=== PATIENT | female | born 1950 | race Caucasian/White ===

== ENCOUNTER 2017-12-15 20:31 | Inpatient (IN) | payer OTHER, MEDICAID ==
[~2017-12-15] VITALS: Ht 160 cm; Wt 85.3 kg
[2017-12-15 20:32] VITALS: BP 119/53
[2017-12-15] MEDS ORDERED: AMLODIPINE BESY10 MG PO (20:43)
[2017-12-15] MEDS ORDERED: CYMBALTA60 MG PO (20:43)
[2017-12-15] MEDS ORDERED: HUMALOG100 UNIT/1 SUBQ (20:43)
[2017-12-15] MEDS ORDERED: GLUCOTROL5 MG PO (20:44)
[2017-12-15] MEDS ORDERED: LEVEMIR SUBQ (20:44)
[2017-12-15] MEDS ORDERED: FLOMAX0.4 MG PO (20:45)
[2017-12-15] MEDS ORDERED: PRINIVIL20 MG PO (20:45)
[2017-12-15] MEDS ORDERED: METFORMIN HCL500 MG PO (20:45)
[2017-12-15] MEDS ORDERED: DUONEB 2.5-0.5 M3 ML INH (20:45)
[2017-12-15] MEDS ORDERED: NARCAN 1MG/ML1 MG/M1 (20:46)
[2017-12-15] MEDS ORDERED: PERCOCET PO (20:47)
[2017-12-15 20:56] LABS: ABSOLUTE EOSINOPHILS 0.1 thou/uL (0.0-0.7); ABSOLUTE LYMPHOCYTES 1.5 thou/uL (0.8-5.3); ABSOLUTE MONOCYTES 0.8 thou/uL (0.0-1.2); ABSOLUTE NEUTROPHILS 9.1 thou/uL (1.6-8.1); BASOPHILS 0.3 %; EOSINOPHILS 0.8 %; HEMATOCRIT 33.5 % (37.0-47.0); HEMOGLOBIN 10.4 gm/dL (12.0-15.0); LYMPHOCYTES 12.6 %; MCH 25.3 pg (26.0-34.0); MCHC 31.1 g/dL (28.0-37.0); MCV 81.3 fL (80.0-100.0); MONOCYTES 7.1 %; MPV 7.9 fl. (7.2-11.1); NUCLEATED RBCS 0 /100WBC; PLATELET COUNT* 235 thou/uL (150-400); POLYS 79.2 %; RBC 4.12 mil/uL (4.20-5.00); RDW-CV 22.5 % (10.5-14.5); WBC 11.5 thou/uL (4.0-11.0)
[2017-12-15 20:59] LABS: URINE BILIRUBIN NEGATIVE (Negative); URINE BLOOD NEGATIVE (Negative); URINE CLARITY CLEAR; URINE COLOR YELLOW; URINE GLUCOSE-RANDOM NEGATIVE (Negative); URINE KETONES NEGATIVE (Negative); URINE LEUKOCYTES-REFLEX NEGATIVE (Negative); URINE PROTEIN NEGATIVE (Negative); URINE SPECIFIC GRAVITY >= 1.030 (1.005-1.030); URINE UROBILINOGEN 0.2 E.U./dl (0.2-1.0)
[2017-12-15 21:00] LABS: ANION GAP 7 mmol/L (7-16); BUN 35 mg/dL (7-18); CALCIUM 9.3 mg/dL (8.5-10.1); CHLORIDE 102 mmol/L (98-107); CO2 31 mmol/L (21-32); CREATININE 0.9 mg/dL (0.6-1.3); GLUCOSE 112 mg/dL (70-99); POTASSIUM 4.1 mmol/L (3.5-5.1); SODIUM 140 mmol/L (136-145)
[2017-12-15 21:01] LABS: URINE NITRITE-REFLEX POSITIVE (Negative)
[2017-12-15 21:07] LABS: ALBUMIN 3.2 g/dL (3.4-5.0); ALKALINE PHOSPHATASE 43 U/L (46-116); SGOT 47 U/L (15-37); SGPT 55 U/L (30-65); TOTAL BILIRUBIN 0.4 mg/dL (<0.1-1.0); TOTAL PROTEIN 7.5 g/dL (6.4-8.2); TROPONIN-I LEVEL <0.06 ng/mL (<0.06)
[2017-12-15 21:10] LABS: HYALINE CASTS 4-10 Moderate /LPF (None Seen)
[2017-12-15 21:11] LABS: AMORPHOUS URATES Few /LPF (None Seen); BACTERIA-REFLEX >30 Many /HPF (None Seen); MUCUS 0-3 Light strn/LPF (None Seen); SQUAMOUS 4-10 Moderate /LPF (0-3)
[2017-12-15 21:12] LABS: URINE RBC None Seen /HPF (0-2); URINE WBC-REFLEX 6-15 Few /HPF (0-5)
[2017-12-15 21:35] LABS: PLATELET ESTIMATE ADEQUATE
[2017-12-15 21:35] LABS: BE 2.4 mmol/L (-2 to +3); HCO3 29.4 mmol/L (22.0-26.0); PO2 108.2 mmHg (75.0-100.0); pH 7.326 (7.340-7.450)
[2017-12-15 21:37] LABS: ANISOCYTOSIS 2+; CLUMPED PLTS OCCASIONAL
[2017-12-15 21:37] LABS: PCO2 57.5 mmHg (35.0-45.0)
[2017-12-15 22:55] VITALS: BP 118/44
[2017-12-15 23:10] VITALS: BP 117/55
[2017-12-16] VITALS (14 sets, daily range): BP systolic 104–135; BP diastolic 51–62
--- NOTE | 2017-12-16 00:53 | NUR ---
ADMITTED TO ICU BED 5 AT 2300, SEE ADMIT ASSESSMENT. NO FAMILY PRESENT TO ASSIST WITH HISTORY. PER ER REPORT, PT RESIDES AT [facility] AND TOOK AN UNKNOWN QUANTITY OF OXYCODONE AND DEVELOPED DECREASED LOC. PT ADAMENTLY DENIES TAKING ANY MEDICATION AND STATES SHE WANTS TO RETURN TO [facility]. BIPAP ORDERED BY DR ALLRED, PT WORE FOR APPROXIMATELY 20 MINUTES BEFORE REMOVING IT AND STATING SHE COULD NOT TOLERATE IT DUE TO CLOSTROPHOBIA AND DRY MOUTH. RN OFFERED TO CALL PHYSICIAN TO REQUEST ANXIOLYTIC MEDICATION BUT PT REFUSED STATING "I'M NOT TAKING ANY OF YOUR MEDICINE, YOU'D JUST HOLD THAT OVER MY HEAD TOO." PT PLACED BACK ON 100% NRB AND O2 SAT HAS REMAINED >92%. FALL PRECAUTIONS INITIATED. BED ALARM IN USE PT HAS ATTEMPTED TO GET OUT OF BED WITHOUT USE OF CALL LIGHT, PT EDUCATED. PT REFUSED TO SIGN FALL AGREEMENT OR ADMIT MEDICARE DOCUMENTS. PT ORIENTED TO ROOM AND CALL LIGHT WHICH IS WITHIN HER REACH.
[2017-12-16 03:59] LABS: HEMATOCRIT 31.2 % (37.0-47.0); HEMOGLOBIN 9.8 gm/dL (12.0-15.0); MCH 25.5 pg (26.0-34.0); MCHC 31.5 g/dL (28.0-37.0); MCV 81.1 fL (80.0-100.0); MPV 8.2 fl. (7.2-11.1); RBC 3.84 mil/uL (4.20-5.00); RDW-CV 22.7 % (10.5-14.5)
[2017-12-16 04:32] LABS: ALBUMIN 2.8 g/dL (3.4-5.0); CALCIUM 8.5 mg/dL (8.5-10.1); CREATININE 0.6 mg/dL (0.6-1.3); POTASSIUM 4.4 mmol/L (3.5-5.1); TOTAL BILIRUBIN 0.4 mg/dL (<0.1-1.0); TOTAL PROTEIN 6.5 g/dL (6.4-8.2)
[2017-12-16 07:35] LABS: BE 2.2 mmol/L (-2 to +3); pH 7.333 (7.340-7.450)
[2017-12-16 07:37] LABS: PCO2 55.8 mmHg (35.0-45.0); PO2 128.8 mmHg (75.0-100.0)
--- NOTE | 2017-12-16 07:54 | NUR ---
PT CONTINUES TO REFUSE BIPAP, EDUCATION PROVIDED BUT PT STATES "IT DOESN'T WORK LIKE THAT FOR ME." PT REPORTS PAIN IN RIGHT LEG ONLY WITH MOVEMENT, STATING THERE IS NO PAIN WHEN SHE LIES STILL. LARGE BRUISE TO RIGHT HIP/THIGH LATERAL ASPECT THAT PT STATES WAS SUSTAINED WHEN SHE FELL ON 12/13/17, PT REPORTS THAT SHE WAS ADMITTED TO [facility] AFTER THE FALL. HOME MEDICATIONS WERE BROUGHT IN BY FAMILY WHO LEFT PRIOR TO PTS TRANSFER TO ICU, HOME MEDS SENT TO PHARMACY. PT HAS USED CALL LIGHT TO NOTIFY STAFF OF NEED TO USE BEDPAN. UO 750ML THIS SHIFT, PLUS ONE EPISODE OF LARGE VOLUME INCONTINENCE THAT COULD NOT BE MEASURED. UNFORMED BM X1 PER BEDPAN. CALL LIGHT WITHIN REACH.
--- NOTE | 2017-12-16 11:39 | NUR ---
PATIENT CARE ASSUMED AT 0700. PATIENT AWAKE, CALLING AND ASKING TO GO TO THE BATHROOM. VOIDED PER BEDPAN. ORIENTED TO PERSON, BUT CONFUSED TO ALL ELSE. DENIES PAIN. ON NRB UPON ASSUMING CARE. ABLE TO TITRATE DOWN TO 5L NC, CURRENT SAT 94%. SON, KATIUSKA CALLED. PATIENT IS NOT FROM [facility]. HAS HAD RECENT HERNIA SURGERY. PRIOR TO THIS ADMISSION PATIENT FELL AND WAS ADMITTED TO [place] AND WAS DISCHARGED TO [facility]. KATIUSKA STATED ALL OF HER MEDICATIONS WERE SENT WITH HER TO THE [place] AND WAS IN PATIENT'S POSSESSION. THERE IS COCNERNS SHE WAS TAKING HER OWN MEDICATIONS ON TOP OF WHAT NURSES WERE GIVING HER. SON WILL BE HERE LATER AND HAS TAKEN ALL OF HER BELONGINGS FROM [facility]. HE DOES NOT WANT HER TO GO BACK THERE.
--- NOTE | 2017-12-16 13:02 | EKG ---
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 12/16/17 1302 36 36 Alejandro Palma MD, FACC /EPI
--- NOTE | 2017-12-16 18:17 | NUR ---
PATIENT PROGRESSING TOWARDS GOALS. MORE ALERT TODAY. CONTINUES TO BE ORIENTED TO PERSON, SOMETIMES PLACE. NEEDS FREQUENT HINTS TO REACH CORRECT ANSWERS. WHEN CHANGING PATIENT'S BED PATIENT STATED "YEAH, IT WILL FEEL NICE BECAUSE I HAVE BEEN HERE FOR A COUPLE OF DAYS." PATIENT REORIENTED TO SITAUTION, PATIENT ADMITTED LAST NIGHT. VITALS WNL. TITRATED O2 TO 4L NC TO KEEP SATS GREATER THAN 90. BLOOD SUGARS WNL. DENIES PAIN, UNLESS SOMETIMES WHEN TURNED PATIENT'S HIP WHERE BRUISE IS HURTS. PATIENT'S SON DOES STATE WHEN SHE FELL, SHE BROKE HER PELVIS. HAS NOT ASKED FOR PAIN MEDICATIONS OR STATED SHE NEEDS INTERVENTION FOR PAIN TODAY. HAS RESTED COMFORTABLY. PATIENT UP IN CHAIR X1 WITH TWO PERSON ASSIST. GOOD APPETITE, BUT DOES NOT LIKE THE FOOD HERE. PROVIDED WITH MENU AND ASSISTED TO ORDER DINNER, BUT STATE SHE STILL DOES NOT LIKE IT. OTHERWISE NO ACUTE EVENTS TODAY.
[2017-12-17] VITALS (8 sets, daily range): BP systolic 107–149; BP diastolic 47–75
[2017-12-17 04:30] LABS: HEMATOCRIT 31.8 % (37.0-47.0); HEMOGLOBIN 10.1 gm/dL (12.0-15.0); MCH 25.6 pg (26.0-34.0); MCHC 31.9 g/dL (28.0-37.0); MCV 80.2 fL (80.0-100.0); MPV 8.1 fl. (7.2-11.1); RBC 3.97 mil/uL (4.20-5.00); RDW-CV 22.2 % (10.5-14.5)
[2017-12-17 06:01] LABS: BE 5.5 mmol/L (-2 to +3); HCO3 30.2 mmol/L (22.0-26.0); PCO2 44.7 mmHg (35.0-45.0); PO2 69.1 mmHg (75.0-100.0); pH 7.447 (7.340-7.450)
--- NOTE | 2017-12-17 06:39 | NUR ---
ASSUMED PATIENT CARE AT 1900. SHANNON ALERT AND ORIENTED TIMES ONE TO TWO AT BEGINNING OF SHIFT. THIS AM SHE IS ORIENTED TIMES FOUR. NO COMPLAINTS OF PAIN OR DISCOMFORT. HAS GOTTEN BETTER ABOUT USING THE CALL LIGHT THROUGHOUT THE SHIFT. ABLE TO TRANSFER TO BSC WITH STB. IV PATENT.
[2017-12-17 06:55] LABS: ALBUMIN 2.9 g/dL (3.4-5.0); CREATININE 0.5 mg/dL (0.6-1.3); MAGNESIUM 1.7 mg/dL (1.8-2.4); POTASSIUM 3.6 mmol/L (3.5-5.1); TOTAL BILIRUBIN 0.5 mg/dL (<0.1-1.0); TOTAL PROTEIN 6.6 g/dL (6.4-8.2)
--- NOTE | 2017-12-17 08:50 | NUR ---
ASSUMED CARE OF PT AROUND 0730 THIS AM. REFER TO ASSESSMENT. PT VOICES NO CONCERNS THIS AM. DECREASED CONFUSION NOTED THIS AM. PT TO TRANSFER TO TELE STATUS. PT CONTINUES ON 4L OXYGEN/NC WITH SATS 93%. ORDERS OBTAINED TO REPLACE MAG THIS SHIFT. PT ABLE TO TRANSFER TO BSC WITH SBA. NO OTHER CONCERNS AT THIS TIME. CLWR. WCTM.
--- NOTE | 2017-12-17 12:24 | NUR ---
REPORT GIVEN TO TELE NURSE EYAL MOSCOSO AND PT TRANSFERRED TO ROOM 223 WITH ALL BELONGINGS. WILL NOTIFY PT'S SON OF TRANSFER. NO OTHER CONCERNS AT THIS TIME. CLWR. WCTM.
--- NOTE | 2017-12-17 12:26 | NUR ---
SON NOTIFIED OF PT'S ROOM TRANSFER AT THIS TIME.
--- NOTE | 2017-12-17 19:17 | NUR ---
I ASSUMED CARE OF THE PATIENT AT 1150 A TRANSFER FROM THE ICU. BED IS IN THE LOW LOCKED POSITION AND CALL LIGHT IS IN REACH. SHE IS WEIGHT BEARING TOLERATED AND IS STAND BY ASSIST. SHE IS TO DISCHARGE TO REHAB FOR HER PELVIS FRACTURE, AND HER SON DOES NOT WANT HER TO GO BACK TO [facility]. A CLEAR LIQUID DIET HAS BEEN ORDERED BY DR NARVAEZ, BUT THE PATIENT IS UNSURE WHY SHE IS GOING BACK TO CLEARS. SHE HAS HAD A FEW INCONT EPISODES IN THE BED WHEN SHE COUGHS TODAY (BOWEL/BLADDER). SHE IS HERE VISITING FROM [place] AND HER SON LIVES HERE AND SHE HAS PHYSICIAN'S SHE SEES IN [place]. SON WILL BE IN [place] ALL DAY MONDAY AND WILL NOT BE ABLE TO MEET WITH CASE MANAGEMENT. WILL CONTINUE TO MONITOR
[2017-12-18 00:08] VITALS: BP 132/78
--- NOTE | 2017-12-18 01:36 | NUR ---
BEGAN CARE OF PT AT 1915, A/OX4, 3L NC, SR PVC ON THE MONITOR, MEDS/ASSESSMENT PER CHARTING, HOULRY ROUNDING IN PLACE, FALL PRECAUTIONS IN PLACE WITH BED IN LOW LOCKED POSITION WITH CALL LIGHT IN REACH, PT USED BED GAYTAN X1, VSS, FREE FROM PAIN/SOA, WILL CONT TO MONITOR.
[2017-12-18 04:25] VITALS: BP 117/55
--- NOTE | 2017-12-18 05:20 | NUR ---
NOTED AND PRINTED 4 EPISODES OF VTACH WITH PT, AT TIMES PT WAS SITTING UP IN BED ASYMPTOMATIC AND OTHERS SLEEPING, SEE CHART FOR PRINTED STRIPS.
[2017-12-18 05:26] LABS: BE 3.1 mmol/L (-2 to +3); HCO3 27.4 mmol/L (22.0-26.0); PCO2 40.7 mmHg (35.0-45.0); PO2 75.2 mmHg (75.0-100.0); pH 7.446 (7.340-7.450)
[2017-12-18 06:08] LABS: HEMATOCRIT 34.6 % (37.0-47.0); MCH 25.4 pg (26.0-34.0); MCHC 31.8 g/dL (28.0-37.0); MCV 79.9 fL (80.0-100.0); MPV 8.3 fl. (7.2-11.1); RBC 4.34 mil/uL (4.20-5.00); RDW-CV 22.3 % (10.5-14.5)
[2017-12-18 06:36] LABS: ALBUMIN 3.1 g/dL (3.4-5.0); CALCIUM 9.4 mg/dL (8.5-10.1); CREATININE 0.5 mg/dL (0.6-1.3); POTASSIUM 3.6 mmol/L (3.5-5.1); TOTAL BILIRUBIN 0.5 mg/dL (<0.1-1.0); TOTAL PROTEIN 7.8 g/dL (6.4-8.2)
[2017-12-18 08:00] VITALS: BP 137/64
--- NOTE | 2017-12-18 10:25 | NUR ---
CM ASSESSMENT: Pt is A&O. Pt had been at [facility], prior to this hospital stay. Pt states that she normally resides at home with a friend, Pt's friend's recently so they have been living together. Pt reports that she is normally independent with ADLs, continues to cook, clean and drive. No home o2. No DME. Hx of HH in [place]. Supportive family that is invovled in POC. Pt's goal is to return home with HH at nd, Pt stated that her friend would be able to assist her at home if needed. CM to contact Pt's son to confirm info. Following.
--- NOTE | 2017-12-18 10:34 | NUR ---
PT. SON HERE AND INQUIRING ABOUT BAG OF MEDICATIONS BROUGHT IN AT ADDMISSION FROM HIM. BAG LOCATED IN PHARMACY AND RELEASED TO PT. SON PER REQUEST. PT. SON STATES THAT THE BOTTLE OF OXY IN THE BAG WAS ALREADY EMPTY WHEN HE BROUGHT IT TO HIS MOTHER AT [facility]. STATES PT. HAD NO ACCESS TO MEDICATIONS IN HER ROOM WHILE THERE.
[2017-12-18 11:40] VITALS: BP 114/57
[2017-12-18 15:53] VITALS: BP 122/53
--- NOTE | 2017-12-18 19:00 | NUR ---
RECEIVED REPORT. ASSUMED CARE OF PT AT 0730. VSS. O2 SAT >90% ON 1L PER NC, TITRATED DOWN FROM 3L. PT DROWSY BUT A&OX4 THIS AM, BECAME MORE ALERT SHIFT PROGRESSED. SECURITIES CLERK IN PLACE TRACING SR THIS AM. PT CHANGED TO M/S STATUS LATER IN SHIFT. AM ASSESSMENT AND VITALS COMPLETED CHARTED. IV SALINE LOCKED. PT DENIES PAIN OR DISCOMFORT THIS SHIFT. PT EATING AND DRINKING WITHOUT ISSUE, DIET PROGRESSED TO REGULAR/CARB CONTROLL. PT INFORMED OF PLAN OF CARE, PT COMMUNCIATES UNDERSTANDING. PT SEEN BY PT. JADE MCMANUS OF [facility], CALLED ASKING FOR LABS ON PT; PT ASKED IF SHE WANTED LABS SENT, PT STATED "I DO NOT WANT ANY OF MY RECORDS SENT TO THAT PLACE". NO INFORMEATION GIVEN TO [facility]. PT ABLE TO CLEAN UP THIS AFTERNOON AND AMBULATED IN HALLWAY THIS EVENING WITH SON. SON VISITED TWICE TODAY. SON CALLED TO STATE THAT HE HAS ARRANGED PLACEMENT FOR HIS MOM AT [facility]. CASE MANAGEMENT TO ARRANGE. PT REPOSITIONED IN THE BED FOR COMFORT. HIGH FALL RISK PRECAUTIONS IN PLACE. PT PROGRESSING TOWARD GOALS. HOURLY ROUNDING PERFORMED.
[2017-12-18 20:00] VITALS: BP 139/62
[2017-12-19] VITALS: BP 126/54
--- NOTE | 2017-12-19 02:58 | NUR ---
BEGAN CARE OF PT AT 1915, PT A/OX4, 1L NC-REMOVED O2 AND WILL CONT TO MONTIOR O2, MED-SURG STATUS, MEDS/ASSESSMENT PER CHARTING, HOURLY ROUNDING IN PLACE, FALL PRECAUTIONS IN PLACE WITH BED IN LOW LOCKED POSITION WITH ALARM SET, PT SET OFF BED ALARM MULTIPLE TIMES THUS FAR WHEN MOVING AROUND IN THE BED, FREE FROM SOA/PAIN, REFUSED SCD'S AND LOVENOX, VSS, WILL CONT TO MONITOR.
[2017-12-19 08:30] VITALS: BP 151/73
--- NOTE | 2017-12-19 10:23 | NUR ---
Received consult stating that Pt's son wants her to dc to [facility] in [place], [place]. Spoke with Pt, she is in agreement with disposition. Faxed referral and spoke with Daria. Per Dr Valentin, Pt is ready to dc to , requested that facility submit referral to insurance to obtain auth. Waiting for decision to accept. p:[phone] f:[phone]
[2017-12-19] MEDS ORDERED: LEVAQUIN 500 M500 M2 PO (12:09)
[2017-12-19] MEDS ORDERED: PERCOCET PO (12:09)
[2017-12-19] MEDS ORDERED: CEFUROXIME500 MG PO (12:21)
[2017-12-19] MEDS ORDERED: OCEAN104 ML NASAL (12:21)
[2017-12-19] MEDS ORDERED: MUCINEX600 MG PO (12:21)
[2017-12-19] MEDS ORDERED: BENZONATATE100 MG PO (12:21)
--- NOTE | 2017-12-19 16:35 | NUR ---
ASSUMED PT CARE AT 0700 PT IS ALERT AND ORIENTED X 3-4 PT SHOWS NO SIGNS OF CONFUSION, PT DENIES PAIN THIS AM OR SOA ON RA, PT IS UP WITH SBA WITH WALKER PT IS A FALL RISK BED ALARM IS ON PT CALL OUT APPROPRIATELY, DR NARVAEZ ORDERED NO IV ACCESS AND TOLD TECH TO REMOVE IV, DR NARVAEZ NOTED THAT STERIODS NEED TO BE DISCONTINUED WHICH THIS NURSE DID, PT WILL DISCHARGE TO FACILITY TOMORROW AT 1000 PER BARREL LINER, PT IS MED SURG STATUS, WILL CONTINUE TO MONITOR
[2017-12-19 17:23] VITALS: BP 124/56
[2017-12-19 19:45] VITALS: BP 123/69
[2017-12-20] VITALS: BP 130/60
--- NOTE | 2017-12-20 03:04 | NUR ---
ASSUMED CARE AT 1945, ASSESSMENT CHARTED. PATIENT ALERT/ORIENTED X4, SITTING UP IN BED. MED/SURG. ON ROOM AIR, NO SOB NOTED, SATS 97%. NO IV. UP WITH STANDBY ASSIST/WALKER TO BATHROOM. GAIT STEADY. AMBULATED AROUND THE FLOOR WITH STAFF AT SIDE. DENIES NEEDS. STATES HAVING PAIN TO RIGHT LEG/GROIN, MEDS PER MAR WITH RELIEF NOTED. REFUSING SCD'S. BED ALARM ON. CALL LIGHT WITHIN REACH, ENCOURAGED TO CALL FOR NEEDS.
--- NOTE | 2017-12-20 07:22 | NUR ---
PATIENT RESTING IN BED. REPORT GIVEN TO ONCOMING NURSE. WILL MONITOR.
--- NOTE | 2017-12-20 09:36 | NUR ---
RECEIVED CALL FROM [facility] IN [place]. THEY ARE NOT ABLE TO ACCEPT PT AT [place]. UPDATED PT, SHE STATED SHE WOULD PLAN TO GO TO HER EX-SPOUSE'S HOME IN [place]. SHE HAS SPOKEN TO HER SON AND HE WILL BE IN HOSPITAL AROUND 10. WILL DISCUSS FURTHER WITH HIM. PT AT THIS POINT UNSURE IF SHE WANTS HH. DID STATE HER PCP IS DR KATIUSKA GARCIA IN [place].
[2017-12-20 11:09] VITALS: BP 123/70
--- NOTE | 2017-12-20 12:45 | NUR ---
PT WITH COMPLETE DC ORDER. REVIEWED DC INSTRUCTIONS AND MED LIST WITH PT/SON. QUESTIONS ANSWERED TO PT/SON SATISFACTION. ASSISTED PT WITH DRESSING. PT IN POSSESSION OF ALL BELONGINGS. PT LEFT UNIT VIA WC AND NURSING STAFF. PT'S SON TO TRANSPORT HER TO FAMILY MEMBER'S HOME VIA CAR.
== END 2017-12-20 13:14 | disposition home health service (06) | DRG 917 ==
LOC: M.ERS 20:31 → M.2W 21:29 → M.TBA-ER 21:29 → M.ICU 22:54 → M.2W 12-17 12:15
PROVIDERS: Emergency Medicine; ADMIT Internal Medicine
PROC: 5A09357 Assistance with Respiratory Ventilation, Less than 24 Consecutive Hours, Continuous Positive Airway Pressure (ICD-10-PCS; principal; 2017-12-18)
DX: T40.601A Poisoning by unspecified narcotics, accidental (unintentional), initial encounter (principal); J69.0 Pneumonitis due to inhalation of food and vomit; G92 Toxic encephalopathy; J96.21 Acute and chronic respiratory failure with hypoxia; J96.22 Acute and chronic respiratory failure with hypercapnia; R65.10 Systemic inflammatory response syndrome (SIRS) of non-infectious origin without acute organ dysfunction; E11.9 Type 2 diabetes mellitus without complications; F17.210 Nicotine dependence, cigarettes, uncomplicated; J32.9 Chronic sinusitis, unspecified; J44.9 Chronic obstructive pulmonary disease, unspecified; Z87.81 Personal history of (healed) traumatic fracture; Z79.899 Other long term (current) drug therapy; Z88.0 Allergy status to penicillin; Y92.89 Other specified places as the place of occurrence of the external cause